=== PATIENT | male | born 1975 | race Caucasian/White ===

== ENCOUNTER → 2022-12-04 | Day surgery (SDC) | payer BC ==
[~2022-12-04] VITALS: Ht 167.6 cm; Wt 60.9 kg
[~2022-12-04] MED LIST: CLAR10CA3 PO; LIDOCAINE 2% 100MG/5ML SDV (FOR ANES.) As Ordered ONE; NS 1,000 ML IV ONE; propofoL 200 MG/20 ML VIAL As Ordered ONE
[2022-12-04 12:56] VITALS: TEMP 97.7
[2022-12-04 13:12] VITALS: BP 110/73; O2SAT 100
== END | disposition home or self-care (01) ==
LOC: M OPP 11:20
PROVIDERS: ATTEND Internal Medicine Gastroenterology
DX: Z12.11 Encounter for screening for malignant neoplasm of colon (principal); Z12.12 Encounter for screening for malignant neoplasm of rectum; K64.0 First degree hemorrhoids

== ENCOUNTER → 2023-07-18 | Outpatient (REF) | payer BC ==
[~2023-07-18] MED LIST changes: -LIDOCAINE 2% 100MG/5ML SDV (FOR ANES.) As Ordered ONE; -NS 1,000 ML IV ONE; -propofoL 200 MG/20 ML VIAL As Ordered ONE
== END ==
LOC: M LABWUC 16:44 → M LAB REF 16:44
PROVIDERS: ATTEND Physician Assistant
DX: R21 Rash and other nonspecific skin eruption (principal)